=== PATIENT | male | born 1935 | race Caucasian/White ===

== ENCOUNTER 2017-10-19 18:10 | Emergency (ER) | payer SELFPAY ==
[2017-10-19 18:11] VITALS: BP 64/45; PULSE 78; RESP 16; TEMP 36.6; O2SAT 95; BMI 24.4
[2017-10-19 18:15] VITALS: BP 60/48
[2017-10-19 18:34] VITALS: BP 78/48; PULSE 76; RESP 16; O2SAT 95
[2017-10-19] MEDS: 0.9% Normal Saline 1,000 ML 999 ML IV (18:54)
[2017-10-19 19:02] VITALS: BP 84/48; PULSE 64; RESP 14; O2SAT 95
[2017-10-19 20:05] VITALS: BP 80/52; PULSE 80; RESP 16; O2SAT 98
--- NOTE | 2017-10-19 20:05 | ED.DCSUM_ITS ---
- ER Visit Summary Date of Service: 10/19/17 Chief Complaint: Unresponsive episode History of Present Illness: The patient is a 82 M who has been on hospice since December 2016. Family reports that they had taken men and set him on the commode. He slumped to the side was unresponsive for approximately 5 minutes. They called EMS to help get him back in bed and were encouraged for him to come to the emergency room for evaluation. Family reports that they do want him to remain in hospice. Physical Examination: Vitals: 97.8, 84/48, 64, 14, 95% on room air which is not hypoxic. General: Well-nourished and well-developed. Head: Normocephalic atraumatic. Neck: Supple, no lymphadenopathy. No JVD. Nontender. Cardiovascular: Regular rate and rhythm. 2 out of 6 systolic murmur. Respiratory: No respiratory distress. Clear to auscultation bilaterally. Abdominal: Soft, nontender, nondistended, normal bowel sounds. No guarding, rebound, or peritoneal signs. Back: Nontender. Extremities: Nontender, no edema. Skin: Normal color, no rash. Neurologic: Alert. Nonverbal. Masked facies. Emergency Department Course and Treatment: I had a prolonged discussion with the family about their and the patient's wishes. They did not want blood work or further evaluation. He had an IV already in place. He was given a liter of normal saline. Treatment Plan: Patient will be discharged back to home with continued hospice care. Disposition: To home in serious condition. Impression: 1. Unresponsive episode. 2. Hypotension. 3. Hospice patient. This note was generated with [employer] dictation software. It may contain incorrect words, spelling, and punctuation that were not noted in review of the chart prior to signing ED Disposition - Plan for ED Patient: Disposition: Home or Assisted Living Chief Complaint: Neuro S/Sx Instructions: ED Syncope Vasovagal Referrals: Doctor,Your [STAFF PHYSICIAN] - As Needed
== END 2017-10-19 20:30 | disposition home or self-care (01) ==
PROVIDERS: Emergency Provider Emergency Medicine; Family Provider Family Medicine; PCP Family Medicine
DX: R46.4 Slowness and poor responsiveness (principal); I95.9 Hypotension, unspecified; G20 Parkinson's disease; F02.80 Dementia in other diseases classified elsewhere, unspecified severity, without behavioral disturbance, psychotic disturbance, mood disturbance, and anxiety; Z79.899 Other long term (current) drug therapy; Z51.5 Encounter for palliative care
CPT/HCPCS: 96360; 99284; J7030